=== PATIENT | female | born 1985 | race Two or more races ===

== ENCOUNTER 2017-01-26 20:32 | Emergency (ER) | payer SELFPAY ==
[~2017-01-26] VITALS: Ht 172.7 cm; Wt 65.8 kg
[2017-01-26 20:43] VITALS: BP 118/76
== END 2017-01-26 20:56 | disposition home or self-care (01) ==
LOC: ER 20:37
DX: S21.201D Unspecified open wound of right back wall of thorax without penetration into thoracic cavity, subsequent encounter (principal)
CPT/HCPCS: 99283; A4606; Z7610

== ENCOUNTER 2019-02-09 23:00 | Emergency (ER) | payer SELFPAY ==
[~2019-02-09] VITALS: Ht 175.3 cm; Wt 68.0 kg
--- NOTE | 2019-02-09 23:20 | NUR ---
BIB SELF. AMBULATORY. AAOX4. NAD, BREATHING EVEN AND UNLABORED. DENIES OF CP. CAME IN WITH COMPLAINTS OF NON PRODUCTIVE COUGH X 1 WEEK AND SINUS PRESSURE. AT BEDSIDE FOR EVAL.
--- NOTE | 2019-02-09 23:46 | NUR ---
WAIVER OBTAINED FROM PT. RADIOLOGY DEPT NOTIFIED.
--- NOTE | 2019-02-10 00:03 | NUR ---
XRAY AT BEDSIDE
[2019-02-10 01:03] VITALS: BP 112/65
== END 2019-02-10 00:56 | disposition home or self-care (01) ==
LOC: ER 23:03
DX: R05 Cough (principal); F10.10 Alcohol abuse, uncomplicated; F17.200 Nicotine dependence, unspecified, uncomplicated; Y90.9 Presence of alcohol in blood, level not specified; Z71.6 Tobacco abuse counseling
CPT/HCPCS: 71045-TC